=== PATIENT | female | born 1975 | race Caucasian/White ===

== ENCOUNTER 2016-12-19 16:14 | Emergency (ER) | payer OTHER ==
[2016-12-19 16:23] VITALS: TEMP 97.8; BMI 30.4
--- NOTE | 2016-12-19 17:43 | PDOC ---
*Physical Exam - Vital Signs Last Vital Signs Temp Pulse Resp BP Pulse Ox 97.8 F 64 18 113/60 100 12/19/16 16:18 12/19/16 16:18 12/19/16 16:18 12/19/16 16:18 12/19/16 16:18 ED Treatment Course - LABORATORY CBC & Chemistry Diagram: 12/19/16 18:00 12/19/16 18:00 Medical Decision Making - Medical Decision Making 12/19/16 17:43 Case reviewed with ANNABEL Ordonez. Plan as per MERCHANDISE WORKER. I suspect that the patient is having her menstrual periods since it has been some time since her last depo shot. *DC/Admit/Observation/Transfer Diagnosis at time of Disposition: Menstruation - Discharge Dispostion Disposition: HOME Condition at time of disposition: Stable - Referrals Referrals: Denzel Morse MD [Staff Physician] - Michael Walker MD [Staff Physician] - - Patient Instructions Printed Discharge Instructions: DI for Abdominal Pain-Adult Additional Instructions: Please follow up with the referred oncologist and social services analyst this week. If you experience severe vaginal bleeding (more than one soaked pad an hour), severe pain to one side of your abdomen, inability to walk, fever, chills, vomiting, diarrhea, or any new or worsening symptoms, please return to the ER. Por favor, siga con el referido onclogo y gineclogo esta semana. Si experimenta sangrado vaginal madi (ms de david almohadilla empapada por hora), dolor madi en un lado de giron abdomen, incapacidad para caminar, fiebre, escalofros, vmitos, diarrea o cualquier nuevo o empeoramiento de los sntomas , por favor regrese a la francisco de emergencias. Print Language: YORUBA
[2016-12-19 18:09] LABS: BASOPHIL 0.6 % (0-2.0); EOSINOPHIL 3.1 % (0-4.5); MCH 30.3 pg (25.7-33.7); MCHC 33.4 g/dl (32.0-36.0); MEAN CELL VOLUME 90.7 fl (80-96); MEAN PLT VOLUME 7.3 fl (7.5-11.1); NEUTROPHILS 44.4 % (42.8-82.8); PLATELET COUNT 333 K/MM3 (134-434); RDW 13.1 % (11.6-15.6); WHITE BLOOD COUNT 5.9 K/mm3 (4.0-10.0)
[2016-12-19 18:16] LABS: URINE APPEARANCE CLEAR; URINE BILIRUBIN NEGATIVE (NEGATIVE); URINE COLOR STRAW; URINE GLUCOSE (UA) NEGATIVE (NEGATIVE); URINE KETONE NEGATIVE (NEGATIVE); URINE LEUK ESTERASE NEGATIVE (NEGATIVE); URINE NITRITE NEGATIVE (NEGATIVE); URINE PROTEIN NEGATIVE (NEGATIVE); URINE UROBILINOGEN NEGATIVE E.U./dl (0.2-1.0)
[2016-12-19 18:20] LABS: URINE BLOOD 1+ (NEGATIVE)
[2016-12-19 18:25] LABS: URINE MUCUS RARE; URINE RBC <1 /hpf (0-3); URINE WBC <1 /hpf (3-5)
[2016-12-19 18:29] LABS: ALBUMIN 3.1 g/dl (3.4-5.0); ALK PHOS 78 U/L (45-117); ANION GAP 8 (8-16); BILIRUBIN,TOTAL 0.3 mg/dL (0.2-1.0); CALCIUM 8.9 mg/dL (8.5-10.1); CO2 28 mmol/L (21-32); CREATININE 0.8 mg/dL (0.55-1.02); GLUCOSE,RANDOM 79 mg/dL (74-106); SGOT/AST 25 U/L (15-37); SGPT/ALT 36 U/L (12-78)
--- NOTE | 2016-12-19 18:37 | PDOC ---
History of Present Illness - General Chief Complaint: Vaginal Bleeding Stated Complaint: VAGINAL BLEEDING Time Seen by Provider: 12/19/16 17:13 - History of Present Illness Initial Comments: 12/19/16 18:30 CHIEF COMPLAINT: abdominal discomfort HISTORY OF PRESENT ILLNESS: 41 yo F with hx of breast cancer (s/p R mastectomy , currently on home chemo treatment) presents to ED with vaginal bleeding. Patient reports that she has been on the Depo shot since November 2015 after her last chemo treatment in the hospital and was told by her doctor in the [place] that "bleeding might cause the cancer to come back." Patient recently moved from the a week ago and missed her shot and is now having vaginal bleeding and complains of "ovarian pain" and a foul smell when she wipes. Recent travel from . PAST MEDICAL HISTORY: Denies past medical history FAMILY HISTORY: "A lot of family history of cancer." Mother passed of "heart problem" SOCIAL HISTORY: Former smoker, quit five years ago. Denies alcohol, illicit drug use. SURGICAL HISTORY: Denies ALLERGIES: No known drug allergies REVIEW OF SYSTEMS General/Constitutional: Denies fever or chills. Denies weakness, weight change. HEENT: Denies change in vision. Denies ear pain or discharge. Denies sore throat. Cardiovascular: Denies chest pain or shortness of breath. Respiratory: Denies cough, wheezing, or hemoptysis. Gastrointestinal: Denies nausea, vomiting, diarrhea or constipation. Denies rectal bleeding. Genitourinary: Denies dysuria, frequency, or change in urination. Musculoskeletal: Back pain. Denies joint or muscle swelling or pain. Denies neck or back pain. Skin and breasts: s/p R mastectomy Neurologic: Denies headache, vertigo, loss of consciousness, or loss of sensation. PHYSICAL EXAM General Appearance: Well-appearing, appropriately dressed. No apparent distress , no intoxication. HEENT: EOMI, PERRLA, normal ENT inspection, normal voice, TMs normal, pharynx normal. No conjunctival pallor. No photophobia, scleral icterus. Neck: Supple. Trachea midline. No tenderness, rigidity, carotid bruit, stridor , lymphadenopathy, or thyromegaly. Respiratory/Chest: Lungs CTAB. Cardiovascular: RRR. S1, S2. Gastrointestinal/Abdominal: Normal bowel sounds. Abdomen soft, non-distended. No tenderness or rebound tenderness. No organomegaly, pulsatile mass, guarding , hernia, hepatomegaly, splenomegaly. Pelvic: Patient mildly uncomfortable on exam. No cervical motion tenderness, no adnexal tenderness. External genitalia normal without lesions. Vaginal vault with bloody discharge. Cervix is long and closed. Uterus is nontender and normal in size. Musculoskeletal/Extremities: Normal inspection. FROM of all extremities, normal capillary refill. Pelvis Stable. No CVA tenderness. No tenderness to extremities, pedal edema, swelling, erythema or deformity. Integumentary: Appropriate color, dry, warm. No cyanosis, erythema, jaundice or rash Neurologic: field administrative assistant II-XII intact. Fully oriented, alert. Appropriate mood/affect. Motor strength 5/5. No appreciable EOM palsy, facial droop or sensory deficit. 12/19/16 20:14 Past History - Past Medical History Allergies/Adverse Reactions: Allergies Allergy/AdvReac Type Severity Reaction Status Date / Time No Known Allergies Allergy Unverified 12/19/16 17:51 Home Medications: Ambulatory Orders Nolvadex 20 Mg 20 mg PO DAILY 12/19/16 Cancer: Yes (breast) - Psycho/Social/Smoking Cessation Hx Anxiety: No Suicidal Ideation: No Smoking History: Never smoked Have you smoked in the past 12 months: No Information on smoking cessation initiated: No Hx Alcohol Use: No Drug/Substance Use Hx: No Substance Use Type: None *Physical Exam - Vital Signs Last Vital Signs Temp Pulse Resp BP Pulse Ox 97.8 F 64 18 113/60 100 12/19/16 16:18 12/19/16 16:18 12/19/16 16:18 12/19/16 16:18 12/19/16 16:18 ED Treatment Course - LABORATORY CBC & Chemistry Diagram: 12/19/16 18:00 12/19/16 18:00 - ADDITIONAL ORDERS Additional order review: Laboratory Results 12/19/16 18:00 Urine Color Straw Urine Appearance Clear Urine pH 5.0 Ur Specific [place] 1.006 Urine Protein Negative Urine Glucose (UA) Negative Urine Ketones Negative Urine Blood 1+ H Urine Nitrite Negative Urine Bilirubin Negative Urine Urobilinogen Negative Ur Leukocyte Esterase Negative Urine RBC <1 Urine WBC <1 Ur Epithelial Cells Rare Urine Mucus Rare Urine HCG, Qual Negative 12/19/16 18:00 RBC 4.84 MCV 90.7 MCHC 33.4 RDW 13.1 MPV 7.3 L Neutrophils % 44.4 Lymphocytes % 43.2 H Monocytes % 8.7 Eosinophils % 3.1 Basophils % 0.6 - RADIOLOGY Radiology Studies Ordered: Category Date Time Status TRANSVAGINAL ULTRASOUND US [US] Stat Ultrasound 12/19/16 17:50 Ordered Medical Decision Making - Medical Decision Making 12/19/16 19:00 41 yo F with hx of breast cancer presents to ED with vaginal bleeding. -CBC, CMP -UA, UCx, Urine -Transvaginal ultrasound Discussed case with covering OBGYN MD Morse. Per Lito, patient only requires close follow up with oncology and may be referred to [facility] for Depo shot. TV U/S results negative for torsion or ovarian cyst rupture. Patient's discomfort during pelvic exam likely secondary to menstruation. 12/19/16 20:15 *DC/Admit/Observation/Transfer Diagnosis at time of Disposition: Menstruation - Discharge Dispostion Disposition: HOME Condition at time of disposition: Stable Admit: No - Referrals Referrals: Denzel Morse MD [Staff Physician] - Michael Walker MD [Staff Physician] - - Patient Instructions Printed Discharge Instructions: DI for Abdominal Pain-Adult Additional Instructions: Please follow up with the referred oncologist and tool room machinist this week. If you experience severe vaginal bleeding (more than one soaked pad an hour), severe pain to one side of your abdomen, inability to walk, fever, chills, vomiting, diarrhea, or any new or worsening symptoms, please return to the ER. Por favor, siga con el referido onclogo y gineclogo esta semana. Si experimenta sangrado vaginal madi (ms de david almohadilla empapada por hora), dolor madi en un lado de giron abdomen, incapacidad para caminar, fiebre, escalofros, vmitos, diarrea o cualquier nuevo o empeoramiento de los sntomas , por favor regrese a la francisco de emergencias. Print Language: UZBEK
[2016-12-19 19:41] VITALS: BP 117/74; PULSE 60
== END 2016-12-19 20:38 | disposition home or self-care (01) ==
LOC: JER 16:14
DX: N94.89 Other specified conditions associated with female genital organs and menstrual cycle (principal); Z85.3 Personal history of malignant neoplasm of breast
CPT/HCPCS: 36415; 76830-TC; 80053; 81003; 81015; 84703; 85025; 87086; 87491; 87591; 99282-25

== ENCOUNTER 2017-02-16 00:49 | Emergency (ER) | payer OTHER ==
[2017-02-16 00:56] VITALS: BP 137/81; PULSE 88; TEMP 98.6; BMI 27.4
--- NOTE | 2017-02-16 01:26 | PDOC ---
History of Present Illness - General History Source: Patient Exam Limitations: No Limitations - History of Present Illness Initial Comments: 02/16/17 01:35 The patient is a 41 year old female with a significant past medical history of breast ca (right mastectomy 1 year ago), and herniated discs, presenting to the Emergency Department after two episodes of vomiting. The patient reports that at 5pm she ate dinner, and at 6pm she took Tramadol for back pain. She admits that at 6:30pm she vomited twice. She describes the vomit as nonbloody, and vomiting up her dinner. She reports feeling nauseous, and shaky. She admits that she believes her symptoms are due to the Tramadol, as she does not normally take Tramadol. The patient denies fever, cough, and chills. Patient denies diarrhea, or constipation. Patient denies dizziness, headache, or lightheadedness. Patient denies palpitations, shortness of breath, or chest pain. <Helen Gan - Last Filed: 02/16/17 01:35> <Yesica Riley - Last Filed: 02/18/17 03:56> - General Chief Complaint: Allergic Reaction Stated Complaint: DIFFICULTY BREATHING Time Seen by Provider: 02/16/17 00:55 Past History <Helen Gan - Last Filed: 02/16/17 01:35> - Past Medical History Cancer: Yes (breast) - Psycho/Social/Smoking Cessation Hx Anxiety: No Suicidal Ideation: No Smoking History: Never smoked Have you smoked in the past 12 months: No Information on smoking cessation initiated: No Hx Alcohol Use: No Drug/Substance Use Hx: No Substance Use Type: None <Yesica Riley - Last Filed: 02/18/17 03:56> - Past Medical History Allergies/Adverse Reactions: Allergies Allergy/AdvReac Type Severity Reaction Status Date / Time tramadol Allergy Intermediate Low Blood Verified 02/16/17 01:32 Pressure Home Medications: Ambulatory Orders Ampicillin Trihydrate [Ampicillin Trihydrate Capsule] 250 mg PO Q6H 02/16/17 Cyclobenzaprine HCl [Flexeril 10 mg] 5 mg PO TID PRN 02/16/17 Ergocalciferol (Vitamin D2) [Vitamin D2] 50,000 unit PO WEEKLY 02/16/17 Ibuprofen [Motrin -] 600 mg PO TID 02/16/17 Tamoxifen Citrate 20 mg PO DAILY 02/16/17 Review of Systems - Review of Systems Able to Perform ROS?: Yes Comments:: 02/16/17 01:36 GENERAL/CONSTITUTIONAL: + shaky. No fever or chills. No weakness. HEAD, EYES, EARS, NOSE AND THROAT: No change in vision. No ear pain or discharge. No sore throat. CARDIOVASCULAR: No chest pain or shortness of breath. RESPIRATORY: No cough, wheezing, or hemoptysis. GASTROINTESTINAL: + nausea, + vomiting. No diarrhea or constipation. GENITOURINARY: No dysuria, frequency, or change in urination. MUSCULOSKELETAL: No joint or muscle swelling or pain. No neck or back pain. SKIN: No rash NEUROLOGIC: No headache, vertigo, loss of consciousness, or change in strength/ sensation. ENDOCRINE: No increased thirst. No abnormal weight change. HEMATOLOGIC/LYMPHATIC: No anemia, easy bleeding, or history of blood clots. ALLERGIC/IMMUNOLOGIC: No hives or skin allergy. <Helen Gan - Last Filed: 02/16/17 01:35> *Physical Exam - Vital Signs Last Vital Signs Temp Pulse Resp BP Pulse Ox 98.6 F 88 20 137/81 100 02/16/17 00:52 02/16/17 00:52 02/16/17 00:52 02/16/17 00:52 02/16/17 00:52 - Physical Exam Comments: 02/16/17 01:36 GENERAL: Patient appears anxious. Awake, alert, and fully oriented, in no acute distress HEAD: No signs of trauma EYES: PERRLA, EOMI, sclera anicteric, conjunctiva clear ENT: Auricles normal inspection, hearing grossly normal, nares patent, oropharynx clear without exudates. Moist mucosa NECK: Normal ROM, supple, no lymphadenopathy, JVD, or masses LUNGS: Breath sounds equal, clear to auscultation bilaterally. No wheezes, and no crackles HEART: Regular rate and rhythm, normal S1 and S2, no murmurs, rubs or gallops ABDOMEN: Soft, nontender, normoactive bowel sounds. No guarding, no rebound. No masses EXTREMITIES: Normal range of motion, no edema. No clubbing or cyanosis. No cords, erythema, or tenderness NEUROLOGICAL: Cranial nerves II through XII grossly intact. Normal speech, normal gait SKIN: Warm, Dry, normal turgor, no rashes or lesions noted. <Helen Gan - Last Filed: 02/16/17 01:35> - Vital Signs Last Vital Signs Temp Pulse Resp BP Pulse Ox 98.6 F 88 20 137/81 100 02/16/17 00:52 02/16/17 00:52 02/16/17 00:52 02/16/17 00:52 02/16/17 00:52 <Yesica Riley - Last Filed: 02/18/17 03:56> Medical Decision Making - Medical Decision Making 02/18/17 03:54 Pt took tramadol and she became nauseous and developed palpitations. Pt had an adverse reaction to the tramadol. SHe is feeling better at this time. Pt's exam is normal. SHe was reassured and she is feeling better. States that she is confident to go home with her family members. Vitals stable. Pt advised to stop her tramadol. She will follow with her PMD. <Yesica Riley - Last Filed: 02/18/17 03:56> *DC/Admit/Observation/Transfer - Attestations Scribe Attestion: 02/16/17 01:37 Documentation prepared by Helen Gan, acting as medical oncology physician for Yesica Riley MD. <Helen Gan - Last Filed: 02/16/17 01:35> - Discharge Dispostion Admit: No <Yesica Riley - Last Filed: 02/18/17 03:56> Diagnosis at time of Disposition: Adverse drug experience, Hypotension - Discharge Dispostion Disposition: HOME Condition at time of disposition: Stable - Patient Instructions Printed Discharge Instructions: DI for Adverse Drug Reaction -- Allergic, DI for Hypotension Print Language: TONGAN
== END 2017-02-16 01:43 | disposition home or self-care (01) ==
LOC: JER 00:49
DX: R11.2 Nausea with vomiting, unspecified (principal); T40.4X5A Adverse effect of other synthetic narcotics, initial encounter; I95.89 Other hypotension
CPT/HCPCS: 99281-25

== ENCOUNTER 2019-02-26 12:18 | Inpatient (IN) | payer OTHER ==
--- NOTE | 2019-02-26 13:44 | PDOC ---
History of Present Illness - History of Present Illness Initial Comments: 02/26/19 14:46 The patient is a 43 year old female, with a significant past medical history of breast cancer (diagnosed in 2014, mastectomy to the right 2016, left mastectomy pending on Tamoxifen), who presents to the emergency department with, 2 weeks of diffuse body and joint aches. Patient notes associated mild nausea (3 episodes yesterday), dizziness, and chest discomfort with mild shortness of breath. Patient endorses going to her PCP last week at which time she was prescribed Gabapentin (took 2 doses then, discontinued), without relief. She denies recent diarrhea or constipation. She denies recent dysuria, frequency, urgency or hematuria. Allergies: Tramadol, diazepam. Heme/Onc: Dr. Walker <Lionel Reyna - Last Filed: 02/26/19 16:53> - General History Source: Patient Exam Limitations: No Limitations <Michael Bangura - Last Filed: 02/26/19 20:48> - General Chief Complaint: Pain Stated Complaint: BODY PAIN Time Seen by Provider: 02/26/19 13:19 Past History <Lionel Reyna - Last Filed: 02/26/19 16:53> - Past Medical History Cancer: Yes (breast) COPD: No - Suicide/Smoking/Psychosocial Hx Smoking History: Current every day smoker Have you smoked in the past 12 months: No Number of Cigarettes Smoked Daily: 1 Information on smoking cessation initiated: No Hx Alcohol Use: No Drug/Substance Use Hx: No Substance Use Type: None <Michael Bangura - Last Filed: 02/26/19 20:48> - Past Medical History Allergies/Adverse Reactions: Allergies Allergy/AdvReac Type Severity Reaction Status Date / Time tramadol Allergy Intermediate Low Blood Verified 02/26/19 13:04 Pressure diazepam Allergy Verified 02/26/19 13:05 Home Medications: Ambulatory Orders Ampicillin Trihydrate [Ampicillin Trihydrate Capsule] 250 mg PO Q6H 02/16/17 Cyclobenzaprine HCl [Flexeril 10 mg] 5 mg PO TID PRN 02/16/17 Ergocalciferol (Vitamin D2) [Vitamin D2] 50,000 unit PO WEEKLY 02/16/17 Ibuprofen [Motrin -] 600 mg PO TID 02/16/17 Tamoxifen Citrate 20 mg PO DAILY 02/16/17 Review of Systems - Review of Systems Able to Perform ROS?: Yes Comments:: 02/26/19 14:47 CONSTITUTIONAL: No reported: Fever, Chills, Diaphoresis, Generalized Weakness, Malaise, Loss of Appetite HEENT: No reported: Rhinorrhea, Nasal Congestion, Throat Pain, Throat Swelling, Difficulty Swallowing, Mouth Swelling, Ear Pain, Eye Pain, Visual Changes CARDIOVASCULAR: Present: Chest discomfort. No reported: Syncope, Palpitations, Irregular Heart Rate, Lightheadedness, Peripheral Edema RESPIRATORY: No reported: Cough, Orthopnea, Wheezing, Stridor, Hemoptysis GASTROINTESTINAL: Present: Nausea, vomiting. No reported: Abdominal pain, Abdominal Distension, Diarrhea, Constipation, Melena, Hematochezia GENITOURINARY: No reported: Dysuria, Frequency, Urgency, Hesitancy, Flank Pain, Genital Pain MUSCULOSKELETAL: Present: Myalsia. No reported: Neck Pain SKIN: No reported: Rash, Itching, Pallor HEMEATOLOGIC/IMMUNOLOGIC: No reported: Easy Bleeding, Easy Bruising, Lymphadenopathy, Frequent infections ENDOCRINE: No reported: Unexplained Weight Gain, Unexplained Weight Loss, Heat Intolerance , Cold Intolerance NEUROLOGIC: No reported: Headache, Focal Weakness, Paresthesias, Vertigo, Lightheadedness, Unsteady Gait, Seizure, Mental Status Changes, Incontinence PSYCHIATRIC: No reported: Anxiety, Depression All Other Systems: Reviewed and Negative <Lionel Reyna - Last Filed: 02/26/19 16:53> *Physical Exam - Vital Signs Last Vital Signs Temp Pulse Resp BP Pulse Ox 98.1 F 54 L 18 129/61 100 02/26/19 12:20 02/26/19 12:20 02/26/19 12:20 02/26/19 12:20 02/26/19 12:20 <Lionel Reyna - Last Filed: 02/26/19 16:53> - Vital Signs Last Vital Signs Temp Pulse Resp BP Pulse Ox 98.1 F 54 L 18 129/61 100 02/26/19 12:20 02/26/19 12:20 02/26/19 12:20 02/26/19 12:20 02/26/19 12:20 - Physical Exam General Appearance: Yes: Nourished, Appropriately Dressed. No: Apparent Distress HEENT: positive: EOMI, FATMATA, Normal ENT Inspection Neck: negative: Tender Respiratory/Chest: positive: Lungs Clear, Normal Breath Sounds. negative: Respiratory Distress, Accessory Muscle Use Cardiovascular: positive: Regular Rhythm, Regular Rate. negative: S1, S2 Gastrointestinal/Abdominal: positive: Flat, Soft. negative: Tender, Organomegaly Integumentary: positive: Normal Color, Dry, Warm. negative: Cyanotic, Erythema Neurologic: positive: Fully Oriented, Alert, Normal Mood/Affect, Normal Response , Motor Strength 5/5 <Michael Bangura - Last Filed: 02/26/19 20:48> ED Treatment Course - LABORATORY CBC & Chemistry Diagram: 02/26/19 14:35 02/26/19 14:35 - Medications Given in the ED: ED Medications Discontinued Medications Generic Name Dose Route Start Last Admin Trade Name Freq PRN Reason Stop Dose Admin Acetaminophen 650 mg 02/26/19 13:45 02/26/19 14:16 Tylenol - PO 02/26/19 13:46 650 mg ONCE ONE Administration Sodium Chloride 1,000 mls @ 1,000 mls/hr 02/26/19 13:45 02/26/19 14:26 Normal Saline - IV 02/26/19 14:44 1,000 mls/hr .Q1H ONE Administration <Lionel Reyna - Last Filed: 02/26/19 16:53> - LABORATORY CBC & Chemistry Diagram: 02/26/19 14:35 02/26/19 14:35 <Michael Bangura - Last Filed: 02/26/19 20:48> Medical Decision Making - Medical Decision Making 16:[address] Walker's answering service, pt's heme/onc, awaiting call back. <Lionel Reyna - Last Filed: 02/26/19 16:53> - Medical Decision Making 02/26/19 13:43 43y F pmhx breast ca present with 2 weeks of myalgias. Endores headaches and joint aches. Denies any fevers but endorses chills. Pt endorses cp, sob, n/v, back pain and feeling dizzy. As any dysuria. 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 Caba (covering for dr walker) - from prior notes, she has had a problem with myalgias in the past regarding elevated CK, agree with hydration and rpeat - if lower can dc to fu with dr. Walker as outpatient 02/26/19 20:18 pts Ck elevated to 1586 as it is going up will admit for further management 02/26/19 20:[address] Lr, agreed with observation in med surg under dr. Shaikh's service <Michael Bangura - Last Filed: 02/26/19 20:48> *DC/Admit/Observation/Transfer - Attestations Scribe Attestion: 02/26/19 14:47 Documentation prepared by Lionel Reyna, acting as medical oncologist for Michael Bangura MD. <Lionel Reyna - Last Filed: 02/26/19 16:53> - Discharge Dispostion Decision to Admit order: Yes <Michael Bangura - Last Filed: 02/26/19 20:48> Diagnosis at time of Disposition: Rhabdomyolysis Qualifiers: Rhabdomyolysis type: non-traumatic Qualified Code(s): M62.82 - Rhabdomyolysis - Discharge Dispostion Condition at time of disposition: Stable
[2019-02-26] MEDS ORDERED: ACETAMINOPHEN 325 MG TABLET (FP) PO ONE (13:45)
[2019-02-26] MEDS ORDERED: SODIUM CHLORIDE 1,000 ML IV ONE ×2 (13:45→16:42)
[2019-02-26] MEDS ORDERED: ACETAMINOPHEN 325 MG TABLET (FP) ONE (14:14)
[2019-02-26 15:02] LABS: BASO % 1.1 % (0-2.0); EOS % 2.1 % (0-4.5); HEMATOCRIT 40.7 % (32.4-45.2); HEMOGLOBIN 13.8 GM/dL (10.7-15.3); LYMPH % 38.3 % (8-40); MCH 31.1 pg (25.7-33.7); MEAN CELL VOLUME 91.6 fl (80-96); MEAN PLT VOLUME 7.8 fl (7.5-11.1); MONO % 7.7 % (3.8-10.2); NEUT % 50.8 % (42.8-82.8); PLATELET COUNT 322 K/MM3 (134-434); RBC 4.45 M/mm3 (3.60-5.2); RDW 14.5 % (11.6-15.6)
[2019-02-26 15:35] LABS: HCG,QUALITATIVE URINE Negative
[2019-02-26 15:36] LABS: EPI CELLS 9.4 /HPF (0-5/HPF); PH,URINE 6.5 (5.0-8.0); URINE APPEARANCE CLOUDY; URINE BACTERIA 1671.6 /hpf (NEGATIVE); URINE BILIRUBIN NEGATIVE (NEGATIVE); URINE CASTS 16 /hpf (0-8); URINE COLOR YELLOW; URINE GLUCOSE (UA) NEGATIVE (NEGATIVE); URINE KETONE NEGATIVE (NEGATIVE); URINE LEUK ESTERASE NEGATIVE (NEGATIVE); URINE NITRITE NEGATIVE (NEGATIVE); URINE PROTEIN NEGATIVE (NEGATIVE); URINE RBC 1 /hpf (0-4); URINE UROBILINOGEN 0.2 mg/dL (0.2-1.0)
[2019-02-26 15:51] LABS: ALK PHOS 63 U/L (45-117); ANION GAP 6 MMOL/L (8-16); BILIRUBIN,TOTAL 0.4 mg/dL (0.2-1); BLOOD UREA NITROGEN 9 mg/dL (7-18); CALCIUM 8.5 mg/dL (8.5-10.1); CHLORIDE 107 mmol/L (98-107); CO2 27 mmol/L (21-32); CREATININE 0.6 mg/dL (0.55-1.3); GLUCOSE,RANDOM 68 mg/dL (74-106); N-TERMINAL BNP 104.2 pg/ml (5-125); SGPT/ALT 34 U/L (13-61); SODIUM 140 mmol/L (136-145); TOT PROT 6.6 g/dl (6.4-8.2)
[2019-02-26 15:53] LABS: POTASSIUM 4.8 mmol/L (3.5-5.1); SGOT/AST 81 U/L (15-37)
[2019-02-26 16:16] LABS: URINE WBC 11 /hpf (0-5)
[2019-02-26 16:17] LABS: YEAST NONE SEEN (NEGATIVE)
[2019-02-26] MEDS ORDERED: SULFAMETHOXAZOLE/TRIMETHOPRIM 800MG/160MG D.S. TABLET PO ONE (16:40)
[2019-02-26] MEDS ORDERED: KETOROLAC TROMETHAMINE 30 MG/1 ML VIAL IVPUSH ONE (16:40)
[2019-02-26] MEDS ORDERED: SULFAMETHOXAZOLE/TRIMETHOPRIM 800MG/160MG D.S. TABLET ONE (16:45)
[2019-02-26] MEDS ORDERED: KETOROLAC TROMETHAMINE 30 MG/1 ML VIAL ONE (16:46)
[2019-02-26] MEDS ORDERED: SODIUM CHLORIDE 1,000 ML IV SCH (21:00)
--- NOTE | 2019-02-26 21:06 | PN ---
Teaching Attending Note Name of Resident: Syeda Lr ATTENDING PHYSICIAN STATEMENT I saw and evaluated the patient. I reviewed the resident's note and discussed the case with the resident. I agree with the resident's findings and plan as documented. SUBJECTIVE: Patient is a 43 year old woman with a significant past medical history of herniated discs, nephrolithiasis, tobacco use and breast cancer (diagnosed in 2014, mastectomy to the right 2016, left mastectomy pending on Tamoxifen), who presents to the emergency department with, 2 weeks of diffuse body and joint aches. Patient notes associated mild nausea (3 episodes yesterday), dizziness, and chest discomfort with mild shortness of breath. Patient went to her PCP last week at which time she was prescribed Gabapentin (took 2 doses then, discontinued), without relief. She denies recent diarrhea or constipation. She denies recent dysuria, frequency, urgency or hematuria. LMP was February 21 2019 and periods are irregular. OBJECTIVE: Alert Vital Signs Period Temp Pulse Resp BP Sys/Mccall Pulse Ox Last 24 Hr 98.1 F 54-60 18-18 124-129/61-66 100-100 HEENT: No Jaundice, eye redness or discharge, PERRLA, EOMI. Normocephalic, atraumatic. External ears are normal and hearing is grossly intact. No nasal discharge. Neck: Supple, nontender. No palpable adenopathy or thyromegaly. No JVD Chest: Good effort. Clear to auscultation and percussion. Heart: Regular. No S3, rub or murmur Abdomen: Not distended, soft, right CVAT and no HSM. No rebound or guarding. Normal bowel sounds. Ext: Peripheral pulses intact. No leg edema. Skin: Warm and dry. No petechiae, rash or ecchymosis. Neuro: Alert. Oriented x3. CN 2-12 grossly intact. Sensation grossly intact in all four extremities and DTR are symmetric. Psych: Appropriate mood and affect. Good insight. Current Medications Generic Name Dose Route Start Last Admin Trade Name Freq PRN Reason Stop Dose Admin Sodium Chloride 1,000 mls @ 125 mls/hr 02/26/19 21:00 Normal Saline - IV ASDIR GEREMIAS Home Medications Medication Instructions Recorded Ampicillin Trihydrate [Ampicillin 250 mg PO Q6H 02/16/17 Trihydrate Capsule] Cyclobenzaprine HCl [Flexeril 10 5 mg PO TID PRN 02/16/17 mg] Ergocalciferol (Vitamin D2) 50,000 unit PO WEEKLY 02/16/17 [Vitamin D2] Ibuprofen [Motrin -] 600 mg PO TID 02/16/17 Tamoxifen Citrate 20 mg PO DAILY 02/16/17 Abnormal Lab Results 02/26/19 02/26/19 14:35 18:43 Anion Gap 6 L Random Glucose 68 L AST 81 H Creatine Kinase 1508 H 1586 H CK-MB (CK-2) 6.78 H 8.1 H Albumin 3.0 L ASSESSMENT AND PLAN: 1. Rhabdomyolysis - Etiology is unclear. Flu swab is negative. Will get urine toxicology, continue IV NS, hold NSAIDS and flexeril, monitor calcium and phosphate and trend CPK. Daily BMP. 2. Hypoalbuminemia - Possibly due to combined effects of malnutrition and inflammation associated with comorbid chronic conditions. Will ensure adequate dietary protein intake and also consult chemistry teacher. 3. Tobacco Use Counseled on risks associated with tobacco use. We will provide patient all the necessary assistance to facilitate smoking cessation and prescribe Nicotine patch. 4. DVT prophylaxis - Lovenox 40 mg SQ q 24 hours. 5. Advance directives - Full code
--- NOTE | 2019-02-26 22:32 | HP ---
CHIEF COMPLAINT: body aches PCP: Dr. Gibbs HISTORY OF PRESENT ILLNESS: 43 y/o F with PMH R breast CA (s/p mastectomy 1 yr ago, on tamoxifen- does not know duration), herniated discs, hx nephrolithiasis, who presents to the ED c/o body aches over the past two weeks. As per pt, she developed generalized myalgias two weeks ago, without known inciting cause. She felt severe pain in her upper and lower extremities during this time, and had trouble ambulating. More recently, over the last two days, pt developed nausea with few episodes of NBNB emesis. Without other sx; denies PERES, fever, chills, SOB, chest pain or pressure, or changes in urinary or bowel function. States that she does not know "whether she had a seizure or not." Had a sz approx 1 yr ago when given tramadol- states that she had shaking in her upper and lower extremities, eyes rolled to the back of her head, however never saw a neurologist. Not on sz ppx, was told by PMD to just d/c tramadol. Denies use of pills, homeopathic regimens, increased caffeine or energy drinks. No recent workouts, or weight lifting. ER course was notable for: (1) 2L NS (2) motrin, tylenol (3) toradol, bactrim Recent Travel: denies PAST MEDICAL HISTORY: as above PAST SURGICAL HISTORY: R mastectomy Social History: Smoking: denies Alcohol: denies Drugs: denies Family History: denies Allergies tramadol Allergy (Intermediate, Verified 02/26/19 13:04) - "seizures" as per pt Low Blood Pressure diazepam Allergy (Verified 02/26/19 13:05) HOME MEDICATIONS: was on percocet for generalized pain however currently not on REVIEW OF SYSTEMS CONSTITUTIONAL: +myalgias Absent: fever, chills, diaphoresis, generalized weakness, malaise, loss of appetite, weight change HEENT: Absent: rhinorrhea, nasal congestion, throat pain, throat swelling, difficulty swallowing, mouth swelling, ear pain, eye pain, visual changes CARDIOVASCULAR: Absent: chest pain, syncope, palpitations, irregular heart rate, lightheadedness , peripheral edema RESPIRATORY: Absent: cough, shortness of breath, dyspnea with exertion, orthopnea, wheezing, stridor, hemoptysis GASTROINTESTINAL: Absent: abdominal pain, abdominal distension, nausea, vomiting, diarrhea, constipation, melena, hematochezia GENITOURINARY: Absent: dysuria, frequency, urgency, hesitancy, hematuria, flank pain, genital pain MUSCULOSKELETAL: Absent: myalgia, arthralgia, joint swelling, back pain, neck pain SKIN: Absent: rash, itching, pallor HEMATOLOGIC/IMMUNOLOGIC: Absent: easy bleeding, easy bruising, lymphadenopathy, frequent infections ENDOCRINE: Absent: unexplained weight gain, unexplained weight loss, heat intolerance, cold intolerance NEUROLOGIC: Absent: headache, focal weakness or paresthesias, dizziness, unsteady gait, seizure, mental status changes, bladder or bowel incontinence PSYCHIATRIC: Absent: anxiety, depression, suicidal or homicidal ideation, hallucinations. PHYSICAL EXAMINATION Vital Signs - 24 hr 02/26/19 02/26/19 12:20 19:14 Temperature 98.1 F Pulse Rate 54 L Pulse Rate [ 60 Left Radial] Respiratory 18 18 Rate Blood Pressure 129/61 Blood Pressure 124/66 [Left Arm] O2 Sat by Pulse 100 100 Oximetry (%) GENERAL: Pleasant. Awake, alert, and fully oriented, in no acute distress. HEAD: Normal with no signs of trauma. EYES: Pupils equal, round and reactive to light, extraocular movements intact, sclera anicteric, conjunctiva clear. No lid lag. EARS, NOSE, THROAT: Ears normal, nares patent, oropharynx clear without exudates. Moist mucous membranes. NECK: Normal range of motion, supple without lymphadenopathy, JVD, or masses. LUNGS: Breath sounds equal, clear to auscultation bilaterally. No wheezes, and no crackles. No accessory muscle use. HEART: Regular rate and rhythm, normal S1 and S2 without murmur, rub or gallop. ABDOMEN: Soft, nontender, not distended, normoactive bowel sounds, no guarding, no rebound, no masses. No hepatomegaly or splenomegaly. MUSCULOSKELETAL: +R CVA tenderness. LOWER EXTREMITIES: 2+ pt pulses, warm, well-perfused. No calf tenderness. No peripheral edema. NEUROLOGICAL: Cranial nerves II-XII intact. Normal speech. Normal gait. PSYCHIATRIC: Cooperative. Good eye contact SKIN: Warm, dry, normal turgor Laboratory Results 02/26/19 02/26/19 02/26/19 14:27 14:35 15:20 Creatine Kinase 1508 H Troponin I < 0.02 Urine Bacteria (Auto) 1671.6 Influenza A (Rapid) Negative Influenza B (Rapid) Negative 02/26/19 18:43 Creatine Kinase 1586 H Troponin I < 0.02 Urine Bacteria (Auto) Influenza A (Rapid) Influenza B (Rapid) ASSESSMENT/PLAN: 43 y/o F with PMH R breast CA (s/p mastectomy 1 yr ago, on tamoxifen- does not know duration), herniated discs, hx nephrolithiasis, who presents to the ED c/o body aches over the past two weeks. #Rhabdomyolysis -with elevated CK. no use of caffeine pills, homeopathic meds, workouts, etc. -could be 2/2 tamoxifen. does not know how long she has been on -c/w vigorous IVF (150 cc/hr) -f/u CMP; namely Ca, phosphate. -c/t trend CK -f/u utox, thyroid fnc tests. -currently not c/o pain. however can add pain meds if needed. avoid use of NSAIDs #R breast CA s/p mastectomy -on tamoxifen- need to confirm dosage. -unclear whether causing sx #F/E/N IV NS 150 cc/hr vigorous continue to follow lytes clear liquid diet - d/t emesis. advance as tolerated. #PPX SCD's #Dispo med surg obs Visit type - Emergency Visit Emergency Visit: Yes ED Registration Date: 02/26/19 Care time: The patient presented to the Emergency Department on the above date and was hospitalized for further evaluation of their emergent condition. - New Patient This patient is new to me today: Yes Date on this admission: 02/27/19 - Critical Care Critical Care patient: No
[2019-02-26] MEDS: SODIUM CHLORIDE 1,000 ML IV SCH (23:02)
[2019-02-27 05:51] LABS: BASO % 2.3 % (0-2.0); HEMATOCRIT 37.3 % (32.4-45.2); HEMOGLOBIN 12.6 GM/dL (10.7-15.3); MCH 30.8 pg (25.7-33.7); MCHC 33.6 g/dl (32.0-36.0); MEAN CELL VOLUME 91.7 fl (80-96); MEAN PLT VOLUME 7.7 fl (7.5-11.1); MONO % 7.2 % (3.8-10.2); NEUT % 43.5 % (42.8-82.8); PLATELET COUNT 271 K/MM3 (134-434); RBC 4.07 M/mm3 (3.60-5.2); RDW 14.1 % (11.6-15.6); WHITE BLOOD COUNT 5.4 K/mm3 (4.0-10.0)
[2019-02-27 06:25] LABS: ALBUMIN 2.5 g/dl (3.4-5.0); ALK PHOS 54 U/L (45-117); ANION GAP 3 MMOL/L (8-16); BILIRUBIN,TOTAL 0.3 mg/dL (0.2-1); BLOOD UREA NITROGEN 8 mg/dL (7-18); CALCIUM 7.6 mg/dL (8.5-10.1); CHLORIDE 112 mmol/L (98-107); CO2 24 mmol/L (21-32); CREATININE 0.6 mg/dL (0.55-1.3); GLUCOSE,RANDOM 80 mg/dL (74-106); MAGNESIUM 1.9 mg/dL (1.8-2.4); PHOSPHOROUS 3.4 mg/dL (2.5-4.9); POTASSIUM 4.1 mmol/L (3.5-5.1); SGOT/AST 54 U/L (15-37); SGPT/ALT 29 U/L (13-61); SODIUM 139 mmol/L (136-145); TOT PROT 5.5 g/dl (6.4-8.2)
--- NOTE | 2019-02-27 10:21 | EKG ---
Test Reason : Blood Pressure : / mmHG Vent. Rate : 051 BPM Atrial Rate : 051 BPM P-R Int : 168 ms QRS Dur : 082 ms QT Int : 466 ms P-R-T Axes : 047 010 014 degrees QTc Int : 429 ms SINUS BRADYCARDIA OTHERWISE NORMAL ECG NO PREVIOUS ECGS AVAILABLE Confirmed by SAMMIE HORNE, NAVJOT ([id number]) on 02/27/2019 10:21:08 AM Referred By: Confirmed By:NAVJOT COCHRAN MD
[2019-02-27 10:56] LABS: ANISOCYTOSIS 0; MACROCYTOSIS 0; PLATELET ESTIMATE NORMAL
[2019-02-27] MEDS ORDERED: FAMOTIDINE 20 MG/50 ML IVPB 20 MG/50 ML MG IVPB ONE ×2 (12:35→12:53)
[2019-02-27] MEDS ORDERED: ONDANSETRON 4 MG/2 ML VIAL IVPUSH ONE (12:35)
[2019-02-27] MEDS ORDERED: ACETAMINOPHEN 325 MG TABLET (FP) PO ONE (12:35)
[2019-02-27] MEDS ORDERED: ACETAMINOPHEN 325 MG TABLET (FP) ONE (12:53)
[2019-02-27] MEDS ORDERED: ONDANSETRON 4 MG/2 ML VIAL ONE (12:53)
[2019-02-27 15:34] VITALS: BMI 32.3
[2019-02-27] MEDS ORDERED: ACETAMINOPHEN 325 MG TABLET (FP) PO PRN ×2 (16:38→16:53)
--- NOTE | 2019-02-27 16:41 | PN ---
Progress Note, Physician Chief Complaint: complainig of leg pain] on iv fluids CK trending down - Current Medication List Current Medications: Active Medications Sodium Chloride (Normal Saline -) 1,000 mls @ 150 mls/hr IV ASDIR [facility] Last Admin: 02/26/19 23:02 Dose: 150 mls/hr - Objective Vital Signs: Vital Signs Temperature 97.3 F L 02/27/19 15:16 Pulse Rate 58 L 02/27/19 15:16 Respiratory Rate 16 02/27/19 15:16 Blood Pressure 129/35 L 02/27/19 15:16 O2 Sat by Pulse Oximetry (%) 95 02/27/19 11:24 Constitutional: Yes: Calm Cardiovascular: Yes: Regular Rate and Rhythm, S1, S2 Respiratory: Yes: CTA Bilaterally Gastrointestinal: Yes: Normal Bowel Sounds, Soft Edema: No Neurological: Yes: Alert, Oriented Labs: CBC, BMP 02/27/19 05:15 02/27/19 05:15 Problem List - Problems (1) Rhabdomyolysis Assessment/Plan: IVF ck trending down early ambulation zofran for nausea Code(s): M62.82 - RHABDOMYOLYSIS Qualifiers: Rhabdomyolysis type: non-traumatic Qualified Code(s): M62.82 - Rhabdomyolysis
[2019-02-27] MEDS ORDERED: traMADol HCL 50 MG TABLET PO PRN (16:52)
[2019-02-27] MEDS ORDERED: ONDANSETRON 4 MG/2 ML VIAL IVPUSH PRN (16:53)
[2019-02-27] MEDS: SODIUM CHLORIDE 1,000 ML IV SCH (17:00)
[2019-02-28] MEDS: SODIUM CHLORIDE 1,000 ML IV SCH (06:03)
[2019-02-28 07:55] LABS: ALBUMIN 2.6 g/dl (3.4-5.0); ALK PHOS 55 U/L (45-117); ANION GAP 5 MMOL/L (8-16); BILIRUBIN,TOTAL 0.4 mg/dL (0.2-1); BLOOD UREA NITROGEN 6 mg/dL (7-18); CALCIUM 7.7 mg/dL (8.5-10.1); CHLORIDE 112 mmol/L (98-107); CO2 26 mmol/L (21-32); CREATININE 0.7 mg/dL (0.55-1.3); GLUCOSE,RANDOM 76 mg/dL (74-106); POTASSIUM 4.2 mmol/L (3.5-5.1); SGOT/AST 48 U/L (15-37); SGPT/ALT 31 U/L (13-61); SODIUM 143 mmol/L (136-145); TOT PROT 5.7 g/dl (6.4-8.2)
--- NOTE | 2019-02-28 12:42 | DS ---
Physical Examination Vital Signs: Vital Signs Temperature 98.2 F 02/28/19 06:00 Pulse Rate 50 L 02/28/19 06:00 Respiratory Rate 18 02/28/19 06:00 Blood Pressure 94/65 02/28/19 06:00 O2 Sat by Pulse Oximetry (%) 100 02/27/19 21:00 Findings/Remarks: 43 y/o F with PMH R breast CA (s/p mastectomy 1 yr ago, on tamoxifen- does not know duration), herniated discs, hx nephrolithiasis, who presents to the ED c/o body aches over the past two weeks. As per pt, she developed generalized myalgias two weeks ago, without known inciting cause. She felt severe pain in her upper and lower extremities during this time, and had trouble ambulating. More recently, over the last two days, pt developed nausea with few episodes of NBNB emesis. Without other sx; denies PERES, fever, chills, SOB, chest pain or pressure, or changes in urinary or bowel function. States that she does not know "whether she had a seizure or not." Had a sz approx 1 yr ago when given tramadol- states that she had shaking in her upper and lower extremities, eyes rolled to the back of her head, however never saw a neurologist. Not on sz ppx, was told by PMD to just d/c tramadol. Denies use of pills, homeopathic regimens, increased caffeine or energy drinks. No recent workouts, or weight lifting. On tamoxifen for past [address] David Fang-oncology at [facility] Constitutional: Yes: Well Nourished, No Distress, Calm Cardiovascular: Yes: Regular Rate and Rhythm Respiratory: Yes: Regular Gastrointestinal: Yes: Normal Bowel Sounds, Soft Musculoskeletal: Yes: WNL Extremities: Yes: WNL Edema: No Peripheral Pulses WNL: Yes Neurological: Yes: Alert, Oriented Psychiatric: Yes: Alert, Oriented Labs: CBC, BMP 02/27/19 05:15 02/28/19 06:30 Discharge Summary Reason For Visit: RHABDOMYOLYSIS Current Active Problems Rhabdomyolysis (Acute) Hospital Course: Laboratory Last Values WBC 5.4 K/mm3 (4.0-10.0) 02/27/19 05:15 RBC 4.07 M/mm3 (3.60-5.2) 02/27/19 05:15 Hgb 12.6 GM/dL (10.7-15.3) 02/27/19 05:15 Hct 37.3 % (32.4-45.2) 02/27/19 05:15 MCV 91.7 fl (80-96) 02/27/19 05:15 MCH 30.8 pg (25.7-33.7) 02/27/19 05:15 MCHC 33.6 g/dl (32.0-36.0) 02/27/19 05:15 RDW 14.1 % (11.6-15.6) 02/27/19 05:15 Plt Count 271 K/MM3 (134-434) 02/27/19 05:15 MPV 7.7 fl (7.5-11.1) 02/27/19 05:15 Absolute Neuts (auto) 2.4 K/mm3 (1.5-8.0) 02/27/19 05:15 Neutrophils % 43.5 % (42.8-82.8) 02/27/19 05:15 Neutrophils % (Manual) 36.6 % (42.8-82.8) L 02/27/19 05:15 Band Neutrophils % 0.0 % 02/27/19 05:15 Lymphocytes % 44.0 % (8-40) H 02/27/19 05:15 Lymphocytes % (Manual) 44.2 % (8-40) H 02/27/19 05:15 Monocytes % 7.2 % (3.8-10.2) 02/27/19 05:15 Monocytes % (Manual) 6 % (3.8-10.2) 02/27/19 05:15 Eosinophils % 3.0 % (0-4.5) 02/27/19 05:15 Eosinophils % (Manual) 6.7 % (0-4.5) H 02/27/19 05:15 Basophils % 2.3 % (0-2.0) H 02/27/19 05:15 Basophils % (Manual) 0.0 % (0-2.0) 02/27/19 05:15 Myelocytes % (Man) 0 % (0-2) 02/27/19 05:15 Promyelocytes % (Man) 0 % (0-2) 02/27/19 05:15 Blast Cells % (Manual) 0 % (0-0) 02/27/19 05:15 Nucleated RBC % 0 % (0-0) 02/27/19 05:15 Metamyelocytes 0 % (0-2) 02/27/19 05:15 Hypochromia 0 02/27/19 05:15 Platelet Estimate Normal 02/27/19 05:15 Polychromasia 0 02/27/19 05:15 Poikilocytosis 0 02/27/19 05:15 Anisocytosis 0 02/27/19 05:15 Microcytosis 0 02/27/19 05:15 Macrocytosis 0 02/27/19 05:15 Sodium 143 mmol/L (136-145) 02/28/19 06:30 Potassium 4.2 mmol/L (3.5-5.1) 02/28/19 06:30 Chloride 112 mmol/L (98-107) H 02/28/19 06:30 Carbon Dioxide 26 mmol/L (21-32) 02/28/19 06:30 Anion Gap 5 MMOL/L (8-16) L 02/28/19 06:30 BUN 6 mg/dL (7-18) L 02/28/19 06:30 Creatinine 0.7 mg/dL (0.55-1.3) 02/28/19 06:30 Creat Clearance w eGFR 90.90 (>60) 02/28/19 06:30 Random Glucose 76 mg/dL (74-106) 02/28/19 06:30 Calcium 7.7 mg/dL (8.5-10.1) L 02/28/19 06:30 Phosphorus 3.4 mg/dL (2.5-4.9) 02/27/19 05:15 Magnesium 1.9 mg/dL (1.8-2.4) 02/27/19 05:15 Total Bilirubin 0.4 mg/dL (0.2-1) 02/28/19 06:30 AST 48 U/L (15-37) H 02/28/19 06:30 ALT 31 U/L (13-61) 02/28/19 06:30 Alkaline Phosphatase 55 U/L (45-117) 02/28/19 06:30 Creatine Kinase 829 U/L (26-192) H 02/28/19 06:30 Creatine Kinase Index 0.4 % (0.0-5.0) 02/28/19 06:30 CK-MB (CK-2) 3.5 ng/mL (0.5-3.6) 02/28/19 06:30 Troponin I < 0.02 ng/ml (0.00-0.05) 02/26/19 18:43 B-Natriuretic Peptide 104.2 pg/ml (5-125) 02/26/19 14:35 Total Protein 5.7 g/dl (6.4-8.2) L 02/28/19 06:30 Albumin 2.6 g/dl (3.4-5.0) L 02/28/19 06:30 TSH 1.90 uIU/ml (0.358-3.74) 02/27/19 05:15 Urine Color Yellow 02/26/19 15:20 Urine Appearance Cloudy 02/26/19 15:20 Urine pH 6.5 (5.0-8.0) D 02/26/19 15:20 Ur Specific [place] 1.010 (1.010-1.035) 02/26/19 15:20 Urine Protein Negative (NEGATIVE) 02/26/19 15:20 Urine Glucose (UA) Negative (NEGATIVE) 02/26/19 15:20 Urine Ketones Negative (NEGATIVE) 02/26/19 15:20 Urine Blood Trace (NEGATIVE) 02/26/19 15:20 Urine Nitrite Negative (NEGATIVE) 02/26/19 15:20 Urine Bilirubin Negative (NEGATIVE) 02/26/19 15:20 Urine Urobilinogen 0.2 mg/dL (0.2-1.0) 02/26/19 15:20 Ur Leukocyte Esterase Negative (NEGATIVE) 02/26/19 15:20 Urine WBC (Auto) 11 /hpf (0-5) 02/26/19 15:20 Urine RBC (Auto) 1 /hpf (0-4) 02/26/19 15:20 Urine Casts (Auto) 16 /hpf (0-8) 02/26/19 15:20 U Pathogenic Cast Auto None seen (NEGATIVE) 02/26/19 15:20 U Epithel Cells (Auto) 9.4 /HPF (0-5/HPF) 02/26/19 15:20 Urine Bacteria (Auto) 1671.6 /hpf (NEGATIVE) 02/26/19 15:20 Urine Yeast (Auto) None seen (NEGATIVE) 02/26/19 15:20 Urine HCG, Qual Negative 02/26/19 15:20 Influenza A (Rapid) Negative 02/26/19 14:27 Influenza B (Rapid) Negative 02/26/19 14:27 Vital Signs Temp 98.2 F 02/28/19 06:00 Pulse 50 L 02/28/19 06:00 Resp 18 02/28/19 06:00 BP 94/65 02/28/19 06:00 Pulse Ox 100 02/27/19 21:00 Intake & Output 02/27/19 02/28/19 02/28/19 23:59 11:59 23:59 Intake Total 1200 Balance 1200 Weight 80.195 kg Intake: IV 1050 Normal Saline - 1,000 ml 1050 @ 150 mls/hr IV [facility]IR [facility] Rx#:[id number] Oral 150 Other: Voiding Method Toilet Toilet Bowel Movement No Height 5 ft 2 in Body Mass Index (BMI) 32.3 Weight Measurement Method Standing Scale Condition: Stable - Instructions Diet, Activity, Other Instructions: Follow up with your PCP in 1 week for repeat labs Referrals: David Fang [Staff Physician] - Disposition: HOME
[2019-02-28 13:44] VITALS: BP 108/63; PULSE 61; TEMP 98.6
== END 2019-02-28 14:26 | disposition home or self-care (01) | DRG 351 ==
LOC: JER 12:18 → JERBED 20:25 → J7W 02-27 15:04 → OBSVTOIN 02-27 15:44
PROVIDERS: ADMIT Internal Medicine; ATTEND Family Medicine
DX: M62.82 Rhabdomyolysis (principal); Z79.810 Long term (current) use of selective estrogen receptor modulators (SERMs); F17.210 Nicotine dependence, cigarettes, uncomplicated; C50.911 Malignant neoplasm of unspecified site of right female breast; E88.09 Other disorders of plasma-protein metabolism, not elsewhere classified
CPT/HCPCS: 36415; 80053; 81003; 82550; 82553; 83735; 83880; 84100; 84436; 84443; 84484; 84703; 85025; 87804; 93005; 93010; 99285-25; G0378; J7030

== ENCOUNTER 2019-07-04 14:46 | Emergency (ER) | payer OTHER ==
[2019-07-04 15:04] VITALS: BP 118/59; PULSE 62; TEMP 98.6; BMI 29.8
[2019-07-04 17:43] LABS: BASO % 1.1 % (0-2.0); EOS % 2.3 % (0-4.5); HEMATOCRIT 45.3 % (32.4-45.2); HEMOGLOBIN 14.5 GM/dL (10.7-15.3); LYMPH % 37.7 % (8-40); MCH 30.5 pg (25.7-33.7); MCHC 32.1 g/dl (32.0-36.0); MEAN CELL VOLUME 95.1 fl (80-96); MEAN PLT VOLUME 8.2 fl (7.5-11.1); MONO % 7.5 % (3.8-10.2); NEUT % 51.4 % (42.8-82.8); PLATELET COUNT 308 K/MM3 (134-434); RBC 4.76 M/mm3 (3.60-5.2); RDW 16.1 % (11.6-15.6); WHITE BLOOD COUNT 7.2 K/mm3 (4.0-10.0)
--- NOTE | 2019-07-04 18:54 | PDOC ---
History of Present Illness - General History Source: Patient Exam Limitations: No Limitations <Juan Carlos,Lorrie - Last Filed: 07/04/19 20:55> <Tom Merrill - Last Filed: 07/04/19 22:34> - General Chief Complaint: Chest Pain Stated Complaint: RT. ARM PAIN\RT. EAR PAIN Time Seen by Provider: 07/04/19 16:55 Past History - Past Medical History Anemia: No Asthma: No Cancer: Yes (right breast mastectomy, left breast partial mastectomy- november 2014) COPD: No Diabetes: No GI Disorders: No HTN: No Hypercholesterolemia: No Seizures: Yes (1 yr ago after tramadol given) Thyroid Disease: No - Immunization History Immunization Up to Date: Yes - Suicide/Smoking/Psychosocial Hx Smoking History: Current every day smoker Have you smoked in the past 12 months: No Number of Cigarettes Smoked Daily: 10 Information on smoking cessation initiated: No Hx Alcohol Use: No Drug/Substance Use Hx: No Substance Use Type: None <Lorrie Rangel - Last Filed: 07/04/19 20:55> <Tom Merrill - Last Filed: 07/04/19 22:34> - Past Medical History Allergies/Adverse Reactions: Allergies Allergy/AdvReac Type Severity Reaction Status Date / Time tramadol Allergy Intermediate Low Blood Verified 02/26/19 13:04 Pressure diazepam Allergy Verified 02/26/19 13:05 Home Medications: Ambulatory Orders NK [No Known Home Medication] 07/04/19 Cardiac Specific PMH - Complaint Specific PMHX Pacemaker: No <Lorrie Rangel - Last Filed: 07/04/19 20:55> *Physical Exam - Physical Exam General Appearance: No: Apparent Distress Respiratory/Chest: positive: Chest Tender (along substernal chest wall), Lungs Clear, Normal Breath Sounds. negative: Respiratory Distress Cardiovascular: positive: Regular Rhythm, Regular Rate, S1, S2. negative: Murmur Gastrointestinal/Abdominal: positive: Soft. negative: Tender Extremity: negative: Pedal Edema, Swelling, Calf Tenderness Neurologic: positive: Alert, Normal Mood/Affect <Lorrie Rangel - Last Filed: 07/04/19 20:55> - Vital Signs Last Vital Signs Temp Pulse Resp BP Pulse Ox 98.6 F 62 16 118/59 L 99 07/04/19 14:51 07/04/19 14:51 07/04/19 14:51 07/04/19 14:51 07/04/19 14:51 Heart Score/ECG Review - History History: Slightly suspicious - Electrocardiogram EKG: Normal - Age Age: </= 45 - Risk Factors Risk Factors Heart Score: Yes Positive family hx of cardiac disease Based on the list above the patient has:: 1-2 risk factors - Troponin Troponin: </= normal limit - Score Heart Score - Total: 1 <Lorrie Rangel - Last Filed: 07/04/19 20:55> ED Treatment Course - LABORATORY CBC & Chemistry Diagram: 07/04/19 17:30 07/04/19 18:10 <Lorrie Rangel - Last Filed: 07/04/19 20:55> - LABORATORY CBC & Chemistry Diagram: 07/04/19 17:30 07/04/19 18:10 <Tom Merrill - Last Filed: 07/04/19 22:34> - ADDITIONAL ORDERS Additional order review: Laboratory Results 07/04/19 07/04/19 07/04/19 18:49 18:48 18:10 D-Dimer 641 H Sodium Potassium Chloride Carbon Dioxide Anion Gap BUN Creatinine Est GFR (CKD-EPI)AfAm Est GFR (CKD-EPI)NonAf Random Glucose Calcium Magnesium Total Bilirubin AST ALT Alkaline Phosphatase Creatine Kinase Troponin I Total Protein Albumin Serum , Qual Negative Urine HCG, Qual Negative 07/04/19 07/04/19 07/04/19 18:10 17:30 17:30 D-Dimer Cancelled Sodium 141 Cancelled Potassium 4.3 Cancelled Chloride 109 H Cancelled Carbon Dioxide 22 Cancelled Anion Gap 10 Cancelled BUN 11.2 Cancelled Creatinine 0.8 Cancelled Est GFR (CKD-EPI)AfAm 103.92 Cancelled Est GFR (CKD-EPI)NonAf 89.66 Cancelled Random Glucose 67 L Cancelled Calcium 9.3 Cancelled Magnesium Cancelled Total Bilirubin 0.2 Cancelled AST 19 Cancelled ALT 20 Cancelled Alkaline Phosphatase 60 Cancelled Creatine Kinase 132 Cancelled Troponin I < 0.02 Cancelled Total Protein 6.9 Cancelled Albumin 3.4 Cancelled Serum , Qual Urine HCG, Qual 07/04/19 17:30 RBC 4.76 MCV 95.1 MCHC 32.1 RDW 16.1 H MPV 8.2 Neutrophils % 51.4 Lymphocytes % 37.7 Monocytes % 7.5 Eosinophils % 2.3 Basophils % 1.1 - Medications Given in the ED: ED Medications Discontinued Medications Generic Name Dose Route Start Last Admin Trade Name Charli PRN Reason Stop Dose Admin Ondansetron HCl 4 mg 07/04/19 19:40 07/04/19 20:19 Zofran Injection IVPUSH 07/04/19 19:41 4 mg ONCE ONE Administration Medical Decision Making <Lorrie Rangel - Last Filed: 07/04/19 20:55> <Tom Merrill - Last Filed: 07/04/19 22:34> - Medical Decision Making 43 y/o F hx of breast CA s/p R partial mastectomy, currently on Tamoxifene, herniated disc, kidney stone presnets with substernal CP from last night. States pain initially started in R hand, went up to R neck, then later from R neck down to chest. States pain is constant in nature and worse with inspiration ; CP is non-exertional. Denies fever, URI sxs, cough, sob, abd pain, vomiting, calf pain, extremity swelling. Consider ACS, PE, costochondritis EKG: Sinus bradycardia at 55 bpm, no ST-T changes Unable to PERC out given history Plan: Labs, CXR 07/04/19 18:45 Trop negative HS 1; less likely ACS D-dimer elevated Sent for CTA to r/o PE 07/04/19 19:28 CTA negative Likely MSK pain given reproducible pain on exam Stable for dc 07/04/19 20:55 (Lorrie Rangel) 07/04/19 22:34 I reviewed the case of the mid-level practitioner and was available for consultation while in the emergency department (Tom Merrill) *DC/Admit/Observation/Transfer - Discharge Dispostion Decision to Admit order: No <Lorrie Rangel - Last Filed: 07/04/19 20:55> <Tom Merrill - Last Filed: 07/04/19 22:34> Diagnosis at time of Disposition: Musculoskeletal chest pain - Discharge Dispostion Disposition: HOME Condition at time of disposition: Stable - Referrals Referrals: Rosamaria Gibbs [Primary Care Provider] - 2 Days - Patient Instructions Printed Discharge Instructions: DI for Chest Pain Additional Instructions: Thank you for choosing [facility]. It was a pleasure taking care of you. Your labs were unremarkable There was no evidence of clot or other anomaly on your CT of chest Likely this is muscular pain. You may take Motrin 600 mg every 6 hours as needed for pain Please follow-up with your doctor in 2 days Return to the Emergency Department if your symptoms worsen or persist or have other concerning symptoms. Gutierrez por elegir el [facility]. Fue un placer cuidar de ti. Chu laboratorios no fueron notables No hubo evidencia de cogulo u otra anomala en giron TC de trax Probablemente sea dolor muscular. Puede bharat Motrin 600 mg cada 6 horas segn sea necesario para el dolor. Estela un seguimiento con giron mdico en 2 pickens. Regrese al departamento de emergencias si chu sntomas empeoran o persisten o si tiene otros sntomas preocupantes. Print Language: ARABIC - Post Discharge Activity
[2019-07-04 19:21] LABS: ALBUMIN 3.4 g/dl (3.4-5.0); ALK PHOS 60 U/L (45-117); ANION GAP 10 MMOL/L (8-16); BILIRUBIN,TOTAL 0.2 mg/dL (0.2-1); BLOOD UREA NITROGEN 11.2 mg/dL (7-18); CALCIUM 9.3 mg/dL (8.5-10.1); CHLORIDE 109 mmol/L (98-107); CO2 22 mmol/L (21-32); CREATININE 0.8 mg/dL (0.55-1.3); GLUCOSE,RANDOM 67 mg/dL (74-106); POTASSIUM 4.3 mmol/L (3.5-5.1); SGOT/AST 19 U/L (15-37); SGPT/ALT 20 U/L (13-61); SODIUM 141 mmol/L (136-145); TOT PROT 6.9 g/dl (6.4-8.2)
[2019-07-04] MEDS ORDERED: ONDANSETRON 4 MG/2 ML VIAL IVPUSH ONE (19:40)
[2019-07-04] MEDS ORDERED: ONDANSETRON 4 MG/2 ML VIAL ONE (20:10)
--- NOTE | 2019-07-05 11:33 | EKG ---
Test Reason : Blood Pressure : / mmHG Vent. Rate : 055 BPM Atrial Rate : 055 BPM P-R Int : 158 ms QRS Dur : 080 ms QT Int : 422 ms P-R-T Axes : 052 016 025 degrees QTc Int : 403 ms SINUS BRADYCARDIA OTHERWISE NORMAL ECG WHEN COMPARED WITH ECG OF 26-FEB-2019 14:40, NO SIGNIFICANT CHANGE WAS FOUND Confirmed by MARCUS WALKER MD ([id number]) on 07/05/2019 11:33:19 AM Referred By: Confirmed By:MARCUS WALKER MD
== END 2019-07-04 21:41 | disposition home or self-care (01) ==
LOC: JER 14:46
PROC: 3E033GC Introduction of Other Therapeutic Substance into Peripheral Vein, Percutaneous Approach (ICD-10-PCS; principal; 2019-07-04)
DX: R07.89 Other chest pain (principal); F17.210 Nicotine dependence, cigarettes, uncomplicated; Z85.3 Personal history of malignant neoplasm of breast; Z90.13 Acquired absence of bilateral breasts and nipples; Z86.69 Personal history of other diseases of the nervous system and sense organs
CPT/HCPCS: 36415; 71046-TC-FY; 71275-TC; 80053; 82550; 84484; 84703; 85025; 85379; 93005; 93010; 96374; 99284-25

== ENCOUNTER 2019-08-24 19:19 | Emergency (ER) | payer OTHER ==
[2019-08-24 19:23] VITALS: BP 112/70; PULSE 86; TEMP 98.3; BMI 31.4
[2019-08-24] MEDS ORDERED: DEXAMETHASONE SOD PHOSPHATE 10 MG/1 ML VIAL IM ONE (20:17)
--- NOTE | 2019-08-24 20:17 | PDOC ---
History of Present Illness - General Chief Complaint: Headache Stated Complaint: FEVER/RASH Time Seen by Provider: 08/24/19 20:17 History Source: Patient - History of Present Illness Initial Comments: 08/24/19 20:21 Chief complaint: Itching Patient 44-year-old female with a history of breast cancer 3 years ago, on tamoxifen who is complaining of one-week of skin itching. Patient is not short of breath although she feels that she has some throat tightness. She does not know what happened. Patient has no fever and otherwise feels well. GENERAL/CONSTITUTIONAL: No fever, weakness. dizziness HEAD, EYES, EARS, NOSE AND THROAT: No change in vision. No ear pain or discharge. No sore throat. CARDIOVASCULAR: No chest pain RESPIRATORY: No shortness of breath or cough GASTROINTESTINAL: No pain, nausea, vomiting, diarrhea or constipation GENITOURINARY: No dysuria MUSCULOSKELETAL: No neck or back pain SKIN: No rash, + itching NEUROLOGIC: No headache, vertigo, loss of consciousness, or loss of sensation. GENERAL: The patient is awake, alert, and fully oriented, in no acute distress. HEAD: Normal with no signs of trauma. EYES: Pupils equal, round and reactive to light, sclera anicteric, conjunctiva clear. ENT: pharynx: no erythema, no exudate, uvula midline NECK: supple CHEST: clear, nontender, rr ABD: soft, nontender BACK: no tenderness or signs of injury EXTREMITIES: Normal range of motion, no edema. NEUROLOGICAL: Normal speech, normal gait. SKIN: Warm, Dry, no obvious urticaria but widespread itching Past History - Past Medical History Allergies/Adverse Reactions: Allergies Allergy/AdvReac Type Severity Reaction Status Date / Time tramadol Allergy Intermediate Low Blood Verified 08/24/19 19:24 Pressure diazepam Allergy Verified 08/24/19 19:24 Home Medications: Ambulatory Orders predniSONE [Deltasone -] 40 mg PO DAILY #5 tablet 08/24/19 Anemia: No Asthma: No Cancer: Yes (right breast mastectomy, left breast partial mastectomy- november 2014) COPD: No Diabetes: No GI Disorders: No HTN: No Hypercholesterolemia: No Seizures: Yes (1 yr ago after tramadol given) Thyroid Disease: No - Immunization History Immunization Up to Date: Yes - Psycho Social/Smoking Cessation Hx Smoking History: Never smoked Have you smoked in the past 12 months: No Number of Cigarettes Smoked Daily: 1 Hx Alcohol Use: No Drug/Substance Use Hx: No Substance Use Type: None *Physical Exam - Vital Signs Last Vital Signs Temp Pulse Resp BP Pulse Ox 98.3 F 86 18 112/70 99 08/24/19 19:20 08/24/19 19:20 08/24/19 19:20 08/24/19 19:20 08/24/19 19:20 Medical Decision Making - Medical Decision Making 08/24/19 20:25 Patient with 1 week of body itching, was given Claritin on August 17 and then was prescribed prednisone and Zyrtec-D on August 19. Patient was not taking the prednisone right and had still has 11 pills. She was prescribed 16 pills. Patient is in no distress and otherwise appears well. Patient has a history of breast cancer but is finished all treatments and is on tamoxifen only. Patient has no signs of illness, is not febrile and appears well We will treat patient with IM Benadryl and Decadron. We will give patient correct instructions to take Benadryl and prednisone. Patient has not been taking any Benadryl for the itching. She will follow-up with her doctor tomorrow for further evaluation 08/24/19 20:55 Patient improved and stable for discharge home Discussed issues, findings, results, applicable medications and treatments and follow-up. All these were understood and all questions were answered Discharge - Discharge Information Problems reviewed: Yes Clinical Impression/Diagnosis: Pruritus Condition: Stable Disposition: HOME - Admission No - Additional Discharge Information Prescriptions: predniSONE [Deltasone -] 40 mg PO DAILY #5 tablet - Follow up/Referral Referrals: Rosamaria Gibbs [Primary Care Provider] - - Patient Discharge Instructions Patient Printed Discharge Instructions: DI for General Allergic Reactions Additional Instructions: Take benadryl 25-50 mg every 4 hours for itching take prednisone 40 mg once daily for anther 4 days, start tomorrow take pepcid 20 mg once daily which will help with the reaction and protect your stomach for any upset from the prednisone return to the er if short of breath, difficulty breathing, or getting worse. otherwise follow up with your doctor in 2-3 days It is not clear what is causing your itching. You need to see your doctor for further evaluation and they will determine what other tests you need done. This is very important. Frisbee benadryl 25-50 mg cada 4 horas para la picazn. tome prednisona 40 mg david vez al da anthony otros 4 pickens, comience maana tome pepcid 20 mg david vez al da, lo que ayudar con la reaccin y proteger giron estmago de cualquier malestar causado por la prednisona. regrese al er si tiene dificultad para respirar, dificultad para respirar o empeora. de lo contrario, jared un seguimiento con giron mdico en 2-3 pickens. No est christina qu est causando la picazn. Debe consultar a giron mdico para david evaluacin adicional y determinarn qu otras pruebas debe realizar. [place] es muy importante. Print Language: BR[place]ISH [place] - Post Discharge Activity
[2019-08-24] MEDS ORDERED: DEXAMETHASONE SOD PHOSPHATE 10 MG/1 ML VIAL ONE (20:22)
== END 2019-08-24 21:03 | disposition home or self-care (01) ==
LOC: JERFT 19:19
PROC: 3E0233Z Introduction of Anti-inflammatory into Muscle, Percutaneous Approach (ICD-10-PCS; principal; 2019-08-24)
PROC: 3E023GC Introduction of Other Therapeutic Substance into Muscle, Percutaneous Approach (ICD-10-PCS; 2019-08-24)
DX: L29.8 Other pruritus (principal); Z85.3 Personal history of malignant neoplasm of breast; Z90.13 Acquired absence of bilateral breasts and nipples; Z79.810 Long term (current) use of selective estrogen receptor modulators (SERMs); Z88.8 Allergy status to other drugs, medicaments and biological substances; Z86.69 Personal history of other diseases of the nervous system and sense organs
CPT/HCPCS: 96372; 99281-25; J1100

== ENCOUNTER 2020-06-01 20:39 | Emergency (ER) | payer OTHER ==
--- NOTE | 2020-06-01 20:48 | PDOC ---
Rapid Medical Evaluation Time Seen by Provider: 06/01/20 20:43 Medical Evaluation: Allergies Allergy/AdvReac Type Severity Reaction Status Date / Time tramadol Allergy Intermediate Low Blood Verified 08/24/19 19:24 Pressure diazepam Allergy Verified 08/24/19 19:24 06/01/20 20:43 44 year old female with pmhx of breast CA (finished chemo x 2 years ago) Complaining of rectal pain with bleeding and mucus, pain worse with defecation. States initially large amount of dark blood now minimal but pain has increased. PE: Chest RRR CTA Rectal Deferred VSS Plan Labs Hemacult Protonix Pt to precede to ED for further eval and management at the discretion of the ED provider Discharge Disposition - Referrals Referrals: Rosamaria Gibbs [Primary Care Provider] - - Patient Instructions - Post Discharge Activity
[2020-06-01] MEDS ORDERED: PANTOPRAZOLE SODIUM 40 MG VIAL IVPUSH ONE (20:49)
[2020-06-01 20:51] VITALS: BMI 34.5
[2020-06-01] MEDS ORDERED: PANTOPRAZOLE SODIUM 40 MG VIAL ONE (22:00)
[2020-06-01] MEDS ORDERED: ACETAMINOPHEN 1000 MG/100 ML VIAL (NON FORMULARY) IVPB ONE (22:12)
--- NOTE | 2020-06-01 22:16 | PDOC ---
History of Present Illness - General Chief Complaint: Bleeding from Anus Stated Complaint: PAIN Time Seen by Provider: 06/01/20 20:43 History Source: Patient, Sibling Exam Limitations: Language Barrier (cyracom ) - History of Present Illness Initial Comments: 06/01/20 22:12 44F PMH Breast Ca on tamoxifen p/w 1 day of BRBPR and rectal pain with associated RLQ pain. Had one episode of loose stools then 2 episodes of gualberto blood. H/o blood on toilet paper for years. Denies f/c, n/v. Denies sick contacts, travel, or new foods. Denies h/o hemorrhoids. Patient accompanied by her sister. Past History - Medical History Allergies/Adverse Reactions: Allergies Allergy/AdvReac Type Severity Reaction Status Date / Time tramadol Allergy Intermediate Low Blood Verified 08/24/19 19:24 Pressure diazepam Allergy Verified 08/24/19 19:24 Home Medications: Ambulatory Orders Hydrocortisone 2.5% Topical Cr [Anusol 2.5% Hc Cream -] 1 applic RC BID #1 tube 06/02/20 Tamoxifen Citrate 0 mg PO DAILY 06/02/20 Anemia: No Asthma: No Cancer: Yes (right breast mastectomy, left breast partial mastectomy- november 2014) COPD: No Diabetes: No GI Disorders: No HTN: No Hypercholesterolemia: No Seizures: Yes (1 yr ago after tramadol given) Thyroid Disease: No - Immunization History Immunization Up to Date: Yes - Psycho-Social/Smoking History Smoking History: Never smoked Have you smoked in the past 12 months: No Number of Cigarettes Smoked Daily: 1 - Substance Abuse Hx (Audit-C & DAST Scrn) How often the patient has a drink containing alcohol: Never Score: In Men: 4 or > Positive; In Women: 3 or > Positive: 0 Screen Result (Pos requires Nsg. Audit-10AR): Negative Review of Systems - Review of Systems Comments:: 06/02/20 19:13 CONSTITUTIONAL: Denies F / C HEENT: Denies sore throat, rhinorrhea RESP: Denies SOB, cough, orthopnea, SHEETS CARD: Denies chest pain, palpitations GI: +abd pain, bloody stool, loose stool. Denies N / V, inability to tolerate PO : Denies dysuria, hematuria, frequency NEURO: Denies numbness, tingling, weakness MSK: Denies back pain SKIN: Denies rashes *Physical Exam - Vital Signs Last Vital Signs Temp Pulse Resp BP Pulse Ox 98.3 F 74 20 118/37 L 100 06/01/20 20:42 06/01/20 20:42 06/01/20 20:42 06/01/20 20:42 06/01/20 20:42 - Physical Exam 06/02/20 19:13 GEN: Well appearing, NAD, comfortable. AAOx3. HEENT: NC/AT, EOMI, PERRL. No facial asymmetry. Moist mucous membranes. Normal v oice. Supple neck w/ FROM. CV: S1/S2, RRR, no m/r/g LUNG: CTAB, no wheezes, crackles, rales, rhonchi. GI: +RLQ TTP o/w soft, +BS, no guarding, no rebound. No masses. RECTAL: Exam chaperoned by FABIOLA Flowers. Pt unable to tolerate full exam 2/2 pain. TTP of the perianal region w/o fluctuance, erythema. No hemorrhoids noted. No active bleeding. MSK: No obvious deformities of all extremities. SKIN: Warm, dry, no rashes appreciated. PSYCH: Normal mood and affect. NEURO: Moving all extremities well. ED Treatment Course - LABORATORY CBC & Chemistry Diagram: 06/01/20 22:09 06/01/20 22:09 - Medications Given in the ED: ED Medications Discontinued Medications Generic Name Dose Route Start Last Admin Trade Name Freq PRN Reason Stop Dose Admin Pantoprazole Sodium 40 mg 06/01/20 20:49 06/01/20 22:01 Protonix Iv IVPUSH 06/01/20 20:50 40 mg ONCE ONE Administration Medical Decision Making - Medical Decision Making 06/02/20 19:13 44F w/ breast ca on tamoxifen c/o BRBPR and rectal pain x1 day. RLQ tenderness on exam. Pt could not tolerate full rectal examination 2/2 pain. DDX - internal hemorrhoid, LGIB, mass - cbc, cmp - ua - pain ctrl - CT A/P 06/02/20 01:40 pt resting comfortably labs reviewed h/h stable, informed there is an issue with CT image upload to [employer] delaying read 06/02/20 03:59 IOC read: EXAM: ABDOMEN \T\ PELVIS CT WITH CONTR HISTORY: Rectal pain and bleeding COMPARISON: None. FINDINGS: Mild motion artifact is noted. Lung bases are clear. The visualized cardiac chambers are normal size and configuration. Normal liver, gallbladder, pancreas, spleen, adrenal glands and kidneys. The stomach and abdominal small and large bowel are normal. There is no aortic dissection or aneurysm. There is no significant retroperitoneal lymphadenopathy. The pelvic small and large bowel are normal. Appendix is normal. There is a cluster of right ovarian cyst or possibly hydrosalpinx. The uterus and left adnexal structures are normal. Urinary bladder is unremarkable. There is no pe lvic free fluid. No discrete pelvic lymphadenopathy is identified. IMPRESSION: Possible right hydrosalpinx or cluster of right ovarian cyst can be further evaluated with ultrasound. No other localizing findings for acute pathology, though evaluation is limited by artifact. THIS DOCUMENT HAS BEEN ELECTRONICALLY SIGNED Thomas Moss MD 06/02/2020 03:53 EST will sign out patient to AM team: TVUS for further characterization in AM if TVUS reassuring, plan to dc home w/ general surgery and sports management intern f/u Discharge - Discharge Information Problems reviewed: Yes Clinical Impression/Diagnosis: Bright red blood per rectum, Abdominal pain Condition: Fair Disposition: HOME - Additional Discharge Information Prescriptions: Hydrocortisone 2.5% Topical Cr [Anusol 2.5% Hc Cream -] 1 applic RC BID #1 tube - Follow up/Referral Referrals: Rosamaria Gibbs [Primary Care Provider] - J Carlos Leary MD [Staff Physician] - Sami Whalen MD [Staff Physician] - [facility] [Provider Group] - Patient Discharge Instructions Patient Printed Discharge Instructions: DI for Rectal Bleeding Additional Instructions: Take tylenol 1000mg every 6-8 hours for pain. DO NOT EXCEED THIS DOSING. We are sending a prescription to your pharmacy, please pick it up and take as prescribed. Purchase a sitz bath over the counter, this may help with your symptoms. Follow up with General Surgery in the next 3-5 days for further management. We have referred you to Drs. Leary and Koby. Their numbers are attached. Please call and schedule an appointment with an accepting office. Follow up with your REAL ESTATE ATTORNEY in the next 5-10 days. We are referring you to the women to women clinic in case you are in need of an REAL ESTATE ATTORNEY. Return to the Emergency Department if you experience new or worsening symptoms, including but not limited to: - severe pain - lightheadedness, chest pain, shortness of breath - anything that concerns you [place] 1000 mg de tylenol cada 6-8 horas para el dolor. NO EXCEDA ESTA DOSIFICACIN. Estamos enviando david receta a giron farmacia, recjala y tmela segn lo recetado. Compre un susanne de asiento sin receta mdica, esto puede ayudar con claudia sntomas. Estela un seguimiento con Ciruga general en los prximos 3-5 pickens para un manejo adicional. Lo hemos referido a los Dres. Gibran y Koby. Claudia nmeros estn adjuntos. Llame y programe david stu con david oficina de aceptacin. Estela un seguimiento con giron obstetra / gineclogo en los prximos 5-10 pickens. Le remitimos a la clnica de franck a franck en allison de que necesite un obstetra / gineclogo. Regrese al Departamento de Emergencias si experimenta sntomas nuevos o que empeoran, que incluyen, entre otros: - dolor madi - aturdimiento, dolor en el pecho, falta de aliento - cualquier cosa que te preocupe Print Language: ROMANIAN - Post Discharge Activity
[2020-06-01 22:17] LABS: BASO % 1.9 % (0-2.0); EOS % 3.1 % (0-4.5); HEMOGLOBIN 14.1 GM/dL (10.7-15.3); LYMPH % 36.7 % (8-40); MCH 31.4 pg (25.7-33.7); MCHC 33.5 g/dl (32.0-36.0); MEAN CELL VOLUME 93.7 fl (80-96); MEAN PLT VOLUME 7.8 fl (7.5-11.1); MONO % 8.4 % (3.8-10.2); NEUT % 49.9 % (42.8-82.8); PLATELET COUNT 258 K/MM3 (134-434); RBC 4.48 M/mm3 (3.60-5.2); RDW 13.5 % (11.6-15.6); WHITE BLOOD COUNT 7.5 K/mm3 (4.0-10.0)
[2020-06-01] MEDS ORDERED: SODIUM CHLORIDE 0.9% 500 ML INFUS.BAG IV ONE (22:24)
[2020-06-01] MEDS ORDERED: HYDROCORTISONE 2.5% TOPICAL CREAM 30 GM TUBE PR ONE (22:30)
[2020-06-01] MEDS ORDERED: ACETAMINOPHEN INJECTION 100 ML IVPB ONE (22:31)
[2020-06-01 22:41] LABS: ALBUMIN 3.4 g/dl (3.4-5.0); BILIRUBIN,TOTAL 0.4 mg/dL (0.2-1); BLOOD UREA NITROGEN 8.3 mg/dL (7-18); CREATININE 0.8 mg/dL (0.55-1.3); POTASSIUM 4.3 mmol/L (3.5-5.1); TOT PROT 6.6 g/dl (6.4-8.2)
--- NOTE | 2020-06-01 23:56 | PDOC ---
Documentation entered by Lionel Reyna SCRIBE, acting as scribe for Roseline Wan DO. Roseline Wan, DO: This documentation has been prepared by the Junaid medellin Nirvannie, SCRIBE, under my direction and personally reviewed by me in its entirety. I confirm that the documentation accurately reflects all work, treatment, procedures, and medical decision making performed by me. Attending Attestation - Resident Resident Name: Steven Caba - ED Attending Attestation I have performed the following: I have examined & evaluated the patient, The case was reviewed & discussed with the resident, I agree w/resident's findings & plan, Exceptions are as noted - HPI HPI: 06/01/20 22:24 The patient is a 44 year old female with a significant past medical history of breast cancer (on Tamoxifen) who presents to the ED with 1 day of bright red blood per rectum with associated rectal pain and right lower quadrant pain. As per patient, she had one episode of loose stool then proceeded with having 2 episodes of bright red blood. Per patient, she has a history of blood on the toilet paper but nothing as severe as todays episode. She denies a history of hemorrhoids. Allergies: Tramadol, Diazepam Primary Care Physician: Dr. Андрей Gibbs - Physicial Exam PE: 06/02/20 02:08 Gen: aaox3, uncomfortable heart: +s1s2 reg lungs: cta b/l abd; soft, RLQ ttp, no rebound or guarding rectal: pt unable to tolerate rectal, no external hemorrhoids or fissures ext: no c/c/e - Medical Decision Making 06/01/20 23:55 a/p: 44yo female with brbpr x 1 day - 2 episodes today and rectal burning since passing her stool -pt with severe rectal pain -hx of mastectomy for breast ca -RLQ ttp on exam -concern for colitis -pt would not tolerate rectal exam, but no external hemorrhoids or fissures -will send labs, ct abd/pelvis -will give pain control, will monitor and reassess 06/02/20 02:09 labs reviewed pt pending ct read pt signed out to the oncoming ED physician pending CT imaging and reassess Discharge - Discharge Information Problems reviewed: Yes Clinical Impression/Diagnosis: Bright red blood per rectum, Abdominal pain Condition: Fair - Follow up/Referral Referrals: Rosamaria Gibbs [Primary Care Provider] - - Patient Discharge Instructions - Post Discharge Activity
[2020-06-02 01:10] LABS: INR 1.13 (0.83-1.09); PROTHROMBIN TIME (PATIENT) 13.4 SEC (9.7-13.0)
--- NOTE | 2020-06-02 07:14 | PDOC ---
*Physical Exam - Vital Signs Last Vital Signs Temp Pulse Resp BP Pulse Ox 97.9 F 51 L 18 104/55 L 100 06/02/20 06:44 06/02/20 06:44 06/02/20 06:44 06/02/20 06:44 06/02/20 06:44 ED Treatment Course - LABORATORY CBC & Chemistry Diagram: 06/01/20 22:09 06/01/20 22:09 - ADDITIONAL ORDERS Additional order review: Laboratory Results 06/02/20 06/01/20 06/01/20 00:30 22:10 22:09 PT with INR 13.40 H INR 1.13 H PTT (Actin FS) 30.0 Sodium 141 Potassium 4.3 Chloride 108 H Carbon Dioxide 28 Anion Gap 5 L BUN 8.3 Creatinine 0.8 Est GFR (CKD-EPI)AfAm 103.19 Est GFR (CKD-EPI)NonAf 89.04 Random Glucose 78 Calcium 9.0 Total Bilirubin 0.4 AST 18 ALT 23 Alkaline Phosphatase 51 Total Protein 6.6 Albumin 3.4 Serum , Qual Negative Stool Occult Blood 06/01/20 06/01/20 22:09 21:51 PT with INR Cancelled INR Cancelled PTT (Actin FS) Cancelled Sodium Potassium Chloride Carbon Dioxide Anion Gap BUN Creatinine Est GFR (CKD-EPI)AfAm Est GFR (CKD-EPI)NonAf Random Glucose Calcium Total Bilirubin AST ALT Alkaline Phosphatase Total Protein Albumin Serum , Qual Stool Occult Blood Negative 06/01/20 22:09 RBC 4.48 MCV 93.7 MCHC 33.5 RDW 13.5 D MPV 7.8 Neutrophils % 49.9 Lymphocytes % 36.7 Monocytes % 8.4 Eosinophils % 3.1 Basophils % 1.9 - Medications Given in the ED: ED Medications Discontinued Medications Generic Name Dose Route Start Last Admin Trade Name Freq PRN Reason Stop Dose Admin Acetaminophen 1,000 mg 06/01/20 22:12 06/01/20 22:40 Ofirmev Injection - IVPB 06/01/20 22:13 1,000 mg ONCE ONE Administration Fentanyl 50 mcg 06/01/20 22:24 06/01/20 22:50 Sublimaze Injection - IVPUSH 06/01/20 22:25 Not Given ONCE ONE Hydrocortisone 1 applic 06/01/20 22:30 06/01/20 22:58 Anusol 2.5% Hc Cream - CO 06/01/20 22:31 1 applic ONCE ONE Administration Pantoprazole Sodium 40 mg 06/01/20 20:49 06/01/20 22:01 Protonix Iv IVPUSH 06/01/20 20:50 40 mg ONCE ONE Administration Sodium Chloride 1,000 ml 06/01/20 22:24 06/01/20 22:39 Normal Saline - IV 06/01/20 22:25 1,000 ml ONCE ONE Administration Medical Decision Making - Medical Decision Making 06/02/20 07:[address] Caba 44F w/ breast ca on tamoxifen c/o BRBPR and rectal pain x1 day. RLQ tenderness on exam. DDX - internal hemorrhoid, LGIB, mass Plan TVUS report: IMPRESSION: Normal size uterus. Anterior myometrial fibroid measuring 1.7 cm, likely submucosal. Multiple nabothian cysts with the largest measuring 2.1 cm. Normal thickness of the endometrial stripe. Simple cyst/dominant follicle in the right ovary measuring 1.3 cm. Both ovaries appear otherwise unremarkable with normal vascular flow 06/02/20 10:13 Patient reporting mild pain, looks comfortable, eating, given Toradol. Discharge to home Discharge - Discharge Information Problems reviewed: Yes Clinical Impression/Diagnosis: Bright red blood per rectum, Abdominal pain Condition: Fair Disposition: HOME - Additional Discharge Information Prescriptions: Hydrocortisone 2.5% Topical Cr [Anusol 2.5% Hc Cream -] 1 applic RC BID #1 tube - Follow up/Referral Referrals: [facility] [Provider Group] J Carlos Leary MD [Staff Physician] - Sami Whalen MD [Staff Physician] - Rosamaria Gibbs [Primary Care Provider] - - Patient Discharge Instructions Patient Printed Discharge Instructions: DI for Rectal Bleeding Additional Instructions: Take tylenol 1000mg every 6-8 hours for pain. DO NOT EXCEED THIS DOSING. We are sending a prescription to your pharmacy, please pick it up and take as prescribed. Purchase a sitz bath over the counter, this may help with your symptoms. Follow up with General Surgery in the next 3-5 days for further management. We have referred you to Drs. Leary and Koby. Their numbers are attached. Please call and schedule an appointment with an accepting office. Follow up with your SPANISH LINGUIST in the next 5-10 days. We are referring you to the women [facility] women clinic in case you are in need of an SPANISH LINGUIST. Return to the Emergency Department if you experience new or worsening symptoms, including but not limited to: - severe pain - lightheadedness, chest pain, shortness of breath - anything that concerns you [place] 1000 mg de tylenol cada 6-8 horas para el dolor. NO EXCEDA ESTA DOSIFICACIN. Estamos enviando david receta a giron farmacia, recjala y tmela segn lo recetado. Compre un susanne de asiento sin receta mdica, esto puede ayudar con claudia sntomas. Estela un seguimiento con Ciruga general en los prximos 3-5 pickens para un manejo adicional. Lo hemos referido a los Dres. Gibran y Koby. Claudia nmeros estn adjuntos. Llame y programe david stu con david oficina de aceptacin. Estela un seguimiento con giron obstetra / gineclogo en los prximos 5-10 pickens. Le remitimos a la clnica de franck a franck en allison de que necesite un obstetra / gineclogo. Regrese al Departamento de Emergencias si experimenta sntomas nuevos o que empeoran, que incluyen, entre otros: - dolor madi - aturdimiento, dolor en el pecho, falta de aliento - cualquier cosa que te preocupe Print Language: [place] - Post Discharge Activity
[2020-06-02] MEDS ORDERED: KETOROLAC TROMETHAMINE 30 MG/1 ML VIAL IVPUSH ONE (10:10)
[2020-06-02] MEDS ORDERED: KETOROLAC TROMETHAMINE 30 MG/1 ML VIAL ONE (10:13)
[2020-06-02 10:41] VITALS: BP 101/50; PULSE 58; TEMP 98
== END 2020-06-02 10:47 | disposition home or self-care (01) ==
LOC: JER 20:39
PROC: 3E0333Z Introduction of Anti-inflammatory into Peripheral Vein, Percutaneous Approach (ICD-10-PCS; principal; 2020-06-01)
PROC: 3E033GC Introduction of Other Therapeutic Substance into Peripheral Vein, Percutaneous Approach (ICD-10-PCS; 2020-06-01)
DX: K62.5 Hemorrhage of anus and rectum (principal); R10.9 Unspecified abdominal pain
CPT/HCPCS: 36415; 74177-TC; 76830-TC; 80053; 82272; 84703; 85025; 85610; 85730; 99285-25; J0131